=== PATIENT | female | born 1975 | race Caucasian/White ===

== ENCOUNTER 2019-04-18 12:15 | Emergency (ER) | payer SELFPAY ==
--- NOTE | 2019-04-18 12:26 | ER Document Report ---
ED Medical Screen (RME) - General Chief Complaint: Psych Problem Stated Complaint: ANXIOUS/ALTERED Time Seen by Provider: 04/18/19 12:19 Mode of Arrival: Ambulatory Information source: Patient Notes: Patient presents stating that she has had difficulty focusing and paranoid thoughts. Patient states that she has been treated for mental illness in the past but is unable to state what her specific diagnosis was. Patient states she has been off of medications for 4 years. Patient denies any suicidal or homicidal ideation I have greeted and performed a rapid initial assessment of this patient. A comprehensive ED assessment and evaluation of the patient, analysis of test results and completion of the medical decision making process will be conducted by additional ED providers. - Related Data Allergies/Adverse Reactions: No Known Allergies Allergy (Unverified 04/18/19 12:19) Physical Exam - Psychological Associated symptoms: Paranoid, Tangential speech
--- NOTE | 2019-04-18 12:52 | ER Document Report ---
ED Psych Disorder / Suicide <BRET POE - Last Filed: 04/18/19 18:10> - General Mode of Arrival: Ambulatory TRAVEL OUTSIDE OF THE [place] IN LAST 30 DAYS: No <DEBORAH KURTZ - Last Filed: 04/18/19 18:20> - General Chief Complaint: Psych Problem Stated Complaint: ANXIOUS/ALTERED Time Seen by Provider: 04/18/19 12:19 Notes: Patient is a 43-year-old female with a history of schizophrenia who presents emergency department with a chief complaint of paranoid thoughts. Patient reports she has had paranoid thoughts for a few days. Patient reports she does not want to go into specific detail regarding these thoughts. Patient reports she is having difficulty focusing. Patient reports that she was on medication about 4 years ago. Patient reports she was taking Depakote but that this caused seizures. Patient reports she is under a lot of stress as she is moving out of a home where she was living by herself and moving in with her daughter, her and 3 young grandchildren under the age of 5. She states that she has gone from living in a quiet environment to a chaotic environment. Patient also reports about 2 years ago pulling a tick from her vagina. Patient reports she is have any discomfort from this area and is concerned that the tick is still there and sucking her blood. Patient reports she started her last menstrual cycle on Sunday. Patient reports body pain with her menstrual cycles but reports that this is improved. Patient's not sure if the tick is still present or if this is part of her paranoid thoughts. (DEBORAH KURTZ) - Related Data Allergies/Adverse Reactions: No Known Allergies Allergy (Unverified 04/18/19 12:19) Past Medical History - General Information source: Patient - Social History Smoking Status: Current Every Day Smoker Cigarette use (# per day): Yes - 1 ppd Chew tobacco use (# tins/day): No Smoking Education Provided: Yes Frequency of alcohol use: None Drug Abuse: None Lives with: Family Family History: None Patient has suicidal ideation: No Patient has homicidal ideation: No - Past Medical History Cardiac Medical History: Reports: None Pulmonary Medical History: Reports: None EENT Medical History: Reports: None Neurological Medical History: Reports: None Endocrine Medical History: Reports: None Renal/ Medical History: Reports: None Malignancy Medical History: Reports: None GI Medical History: Reports: None Musculoskeletal Medical History: Reports None Skin Medical History: Reports None Psychiatric Medical History: Reports: Hx Schizophrenia Traumatic Medical History: Reports: None Infectious Medical History: Reports: None Surgical Hx: Negative <DEBORAH KURTZ - Last Filed: 04/18/19 18:20> Review of Systems - Review of Systems Constitutional: No symptoms reported EENT: No symptoms reported Cardiovascular: No symptoms reported Respiratory: No symptoms reported Gastrointestinal: No symptoms reported Genitourinary: No symptoms reported Female Genitourinary: See HPI Musculoskeletal: No symptoms reported Skin: No symptoms reported Hematologic/Lymphatic: No symptoms reported Neurological/Psychological: Anxiety, Other - Paranoid thoughts <DEBORAH KURTZ - Last Filed: 04/18/19 18:20> Physical Exam <DEBORAH KURTZ - Last Filed: 04/18/19 18:20> - Vital signs Vitals: Temp Pulse Resp BP Pulse Ox 99.4 F 104 H 18 145/81 H 100 04/18/19 12:20 04/18/19 12:20 04/18/19 12:20 04/18/19 12:20 04/18/19 12:20 - Notes Notes: GENERAL: Flat affect, poor eye contact, sitting upright, well kept. HEAD: Atraumatic, normocephalic. EYES: Pupils equal round and reactive to light, extraocular movements intact, sclera anicteric, conjunctiva are normal. ENT: Nares patent, oropharynx clear without exudates. Moist mucous membranes. NECK: Normal range of motion, supple without lymphadenopathy or JVD. LUNGS: Breath sounds clear to auscultation bilaterally and equal. No wheezes rales or rhonchi. HEART: Regular rate and rhythm without murmurs, rubs or gallops. ABDOMEN: Soft, nontender, normoactive bowel sounds. No guarding, no rebound. No masses appreciated. BACK: No cervical, thoracic, lumbar midline tenderness. No saddle anesthesia, normal distal neurovascular exam. GENITOURINARY: Deferred. EXTREMITIES: Normal range of motion, no pitting or edema. No clubbing or cyanosis. NEUROLOGICAL: Cranial nerves II through XII grossly intact. Normal speech, normal gait. PSYCH: Flat affect, poor eye contact. SKIN: Warm, Dry, normal turgor, no rashes or lesions noted. (DEBORAH KURTZ) Course - Laboratory Result Diagrams: 04/18/19 12:45 04/18/19 12:45 <BRET POE - Last Filed: 04/18/19 18:10> - Laboratory Result Diagrams: 04/18/19 12:45 04/18/19 12:45 <DEBORAH KURTZ - Last Filed: 04/18/19 18:20> - Re-evaluation Re-evalutation: 04/18/19 12:51 We will obtain a pelvic examination as the patient reports a possible tick bite that did occur 2 years ago but she is concerned that the tick is still present and feels an irritation to the vaginal area. Will obtain pelvic specimens as well. Patient in agreement with this plan. Denies SI/HI. 04/18/19 13:35 Patient tolerated the speculum examination well. This was supervised by Aliya HARGROVE. Specimen sent to lab. 04/18/19 13:57 Patient's lab work was unremarkable. Patient does have a slightly low platelet count of 129. Patient's pelvic specimens did not reveal a bacterial vaginosis, yeast, trichomonas. Gonorrhea and Chlamydia cultures are pending. Patient is medically cleared. Bret with [facility] is at the bedside speaking with the patient. 04/18/19 14:12 Urinalysis pending. Zyprexa ordered per mental health recommendations. I did update the patient regarding this new medication we are giving her, patient is in agreement. 04/18/19 15:04 Urinalysis unremarkable. Patient is medically cleared. 04/18/19 18:20 Patient resting comfortably on stretcher. Family is at bedside. Patient was given a two-week prescription for Zyprexa 5 mg twice daily. This was of the recommendation by mental health. Patient reports feeling slightly better and continues to deny SI and HI. Patient has good eye contact and is smiling. Patient stable for discharge. (DEBORAH KURTZ) - Vital Signs Vital signs: Temp Pulse Resp BP Pulse Ox 99.4 F 104 H 18 145/81 H 100 04/18/19 12:20 04/18/19 12:20 04/18/19 12:20 04/18/19 12:20 04/18/19 12:20 - Laboratory Laboratory results interpreted by me: 04/18/19 04/18/19 04/18/19 12:45 12:45 14:05 WBC 10.8 H MCH 33.7 H Plt Count 129 L Absolute Neuts (auto) 8.4 H Glucose 118 H Direct Bilirubin 0.6 H Urine Blood LARGE H Ur Leukocyte Esterase SMALL H Salicylates 1.0 L Acetaminophen < 10 L Patient's lab work was unremarkable. Patient did have a slightly low platelet count of 129. Patient's liver enzymes within normal limits. Patient's pelvic exam specimens did not reveal yeast, bacterial vaginosis or trichomonas. Gonorrhea and Chlamydia cultures are pending. Urine drug screen negative. Laboratory 04/18/19 04/18/19 04/18/19 12:45 12:45 12:45 WBC 10.8 H RBC 4.27 Hgb 14.4 Hct 40.3 MCV 94 MCH 33.7 H MCHC 35.7 RDW 12.7 Plt Count 129 L Lymph % (Auto) 17.1 Craig % (Auto) 4.3 Eos % (Auto) 0.3 Baso % (Auto) 0.3 Absolute Neuts (auto) 8.4 H Absolute Lymphs (auto) 1.8 Absolute Monos (auto) 0.5 Absolute Eos (auto) 0.0 Absolute Basos (auto) 0.0 Seg Neutrophils % 78.0 Sodium 140.2 Potassium 3.8 Chloride 105 Carbon Dioxide 26 Anion Gap 9 BUN 15 Creatinine 0.96 Est GFR ( Amer) > 60 Est GFR (MDRD) Non-Af > 60 Glucose 118 H Calcium 9.7 Total Bilirubin 0.7 Direct Bilirubin 0.6 H Neonat Total Bilirubin Not Reportable Neonat Direct Bilirubin Not Reportable Neonat Indirect Bili Not Reportable AST 19 ALT 17 Alkaline Phosphatase 72 Total Protein 8.2 Albumin 4.3 Serum HCG, Qual NEGATIVE Trichomonas (Wet Prep) Vaginal WBC Vaginal RBC Vaginal Yeast Salicylates 1.0 L Acetaminophen < 10 L Serum Alcohol < 10 04/18/19 13:30 WBC RBC Hgb Hct MCV MCH MCHC RDW Plt Count Lymph % (Auto) Craig % (Auto) Eos % (Auto) Baso % (Auto) Absolute Neuts (auto) Absolute Lymphs (auto) Absolute Monos (auto) Absolute Eos (auto) Absolute Basos (auto) Seg Neutrophils % Sodium Potassium Chloride Carbon Dioxide Anion Gap BUN Creatinine Est GFR ( Amer) Est GFR (MDRD) Non-Af Glucose Calcium Total Bilirubin Direct Bilirubin Neonat Total Bilirubin Neonat Direct Bilirubin Neonat Indirect Bili AST ALT Alkaline Phosphatase Total Protein Albumin Serum HCG, Qual Trichomonas (Wet Prep) NO TRICHOMONAS SEEN Vaginal WBC 1+ WBCS SEEN Vaginal RBC 4+ RBCS SEEN Vaginal Yeast NO YEAST SEEN Salicylates Acetaminophen Serum Alcohol 04/18/19 15:04 (DEBORAH KURTZ) Procedures - Pelvic Exam Pelvic exam Time completed: 13:30 Cultures obtained: Yes Wet prep obtained: Yes Witnessed by: BEENA Pisano <DEBORAH KURTZ - Last Filed: 04/18/19 18:20> - Pelvic Exam Pelvic exam Notes: 04/18/19 13:31 External genitalia was unremarkable without edema, lesions, erythema. I did have the patient point to the area of concern. Patient pointed to the anterior aspect of the labia majora. Did not reveal any lesions, edema or abnormalities or tick. Patient tolerated the insertion of the speculum well. There was a large amount of bright red blood noted within the vaginal vault. Patient is on her menstrual cycle currently. Was able to visualize the cervix. Specimens were obtained. Patient tolerated well without discomfort. (DEBORAH KURTZ) Discharge <BRET POE - Last Filed: 04/18/19 18:10> <DEBORAH KURTZ - Last Filed: 04/18/19 18:20> - Discharge Clinical Impression: Paranoia Bipolar disorder, unspecified Qualifiers: Active/Remission status: currently active Current bipolar episode type: mixed Current episode severity: unspecified Qualified Code(s): F31.60 - Bipolar disorder, current episode mixed, unspecified Condition: Stable Disposition: HOME, SELF-CARE Additional Instructions: You have been evaluated by both medical and behavioral health teams for paranoia and have been deemed appropriate for discharge. While you were in the Emergency Department you received the following services: medical, psychiatric/psychological, pharmaceutical, nursing, project safety manager and securit y, environmental in addition to psychoeducation and resources/referrals. You have been started on Zyprexa 5mg twice daily; please take as directed. You have also been provided a resource list of area providers including mobile crisis contact information; please follow up with your chosen provider in 3-5 days. Bipolar Disorder Bipolar disorder is also called manic-depressive disorder. Depression alternates with brain hyperactivity called kristen. Each phase lasts from several days to a few weeks. We don't know exactly what causes bipolar disorder, but it's treatable. During the "manic phase," you may feel elated and energetic. You may have racing thoughts, rapid speech, increased activity, and grandiose ideas. During this time, you may not realize how poor your judgement is. Inappropriate spending, drug abuse, excessive alcohol use, marriage problems, and irresponsibl e sexual behavior are common during the manic phase. During the "depressive phase," you might feel depressed, guilty, worthless, fatigued, and unable to concentrate. You might have thoughts of suicide. Good treatments are available for bipolar disorder. [place] is a classic drug for bipolar disorder, and is still often useful. If the manic phase is very mild, an antidepressant alone can be prescribed. If the manic phase is very severe, an antipsychotic medicine (such as Haldol) may be needed. The treatment must be matched to your symptoms, so it's important to work closely with your psychiatric care provider. Contact your physician, the hospital emergency center, crisis line, or your counsellor if you are losing control or having self-destructive thoughts. Prescriptions: Olanzapine [Zyprexa 5 mg Tablet] 5 mg PO BID #28 tablet Referrals: [facility] Crisis Team [Provider Group] - Follow up as needed
[2019-04-18 13:04] LABS: ABSOLUTE LYMPHOCYTES (AUTO) 1.8 10^3/uL (0.5-4.7); ABSOLUTE MONOCYTES (AUTO) 0.5 10^3/uL (0.1-1.4); ABSOLUTE NEUT (AUTO) 8.4 10^3/uL (1.7-8.2); BASOPHILS % (AUTO) 0.3 % (0-2); EOSINOPHILS % (AUTO) 0.3 % (0-6); HEMATOCRIT 40.3 % (36.0-47.0); HEMOGLOBIN 14.4 g/dL (12.0-15.5); LYMPHOCYTES % (AUTO) 17.1 % (13-45); MEAN CORPUSCULAR HEMOGLOBIN 33.7 pg (27.0-33.4); MEAN CORPUSCULAR HGB CONC 35.7 g/dL (32.0-36.0); MEAN CORPUSCULAR VOLUME 94 fl (80-97); MONOCYTES % (AUTO) 4.3 % (3-13); PLATELET COUNT 129 10^3/uL (150-450); RED BLOOD COUNT 4.27 10^6/uL (3.72-5.28); RED CELL DISTRIBUTION WIDTH 12.7 % (11.5-14.0); TOTAL CELLS COUNTED % (AUTO) 100 %; WHITE BLOOD COUNT 10.8 10^3/uL (4.0-10.5)
[2019-04-18 13:21] LABS: ALBUMIN 4.3 g/dL (3.5-5.0); ALKALINE PHOSPHATASE 72 U/L (38-126); ANION GAP 9 (5-19); ASPARTATE AMINO TRANSFERASE 19 U/L (14-36); BILIRUBIN,DIRECT 0.6 mg/dL (0.0-0.4); BILIRUBIN,TOTAL 0.7 mg/dL (0.2-1.3); BLOOD UREA NITROGEN 15 mg/dL (7-20); CALCIUM 9.7 mg/dL (8.4-10.2); CARBON DIOXIDE 26 mmol/L (22-30); CHLORIDE 105 mmol/L (98-107); GLUCOSE 118 mg/dL (75-110); POTASSIUM 3.8 mmol/L (3.6-5.0); TOTAL PROTEIN 8.2 g/dL (6.3-8.2)
[2019-04-18 13:24] LABS: ACETAMINOPHEN < 10 ug/mL (10-30); ALCOHOL < 10 mg/dL (NONE DETECTED)
[2019-04-18 13:52] LABS: RBCS (WET MOUNT) 4+ RBCS SEEN; T.VAGINALIS (WET MOUNT) NO TRICHOMONAS SEEN; WBCS (WET MOUNT) 1+ WBCS SEEN; YEAST (WET MOUNT) NO YEAST SEEN
[2019-04-18] MEDS ORDERED: OLANZAPINE 5 MG TAB.RAPDIS PO ONE (14:13)
--- NOTE | 2019-04-18 14:39 | PSYCHOLOGICAL NOTE ---
Psych Note - Psych Note Date seen by psych provider: 04/18/19 Time seen by psych provider: 14:00 Psych Note: Reason For Consult:paranoia Consent Permissions:none provided She reports she has been under stress and has not been sleeping. She reports she has thoughts that if she discloses where she is from "they" will know and go and kill everyone there; " I know that it is not right...but I can't help thinking it." She continues to disclose "my family says they wanted me to go to [place], but I don't want to try running...I don't want to be that person... I came here because I know I need help, but sometimes I get a thought that I have to run away (for safety)." She confirms that has happened to her before and that she feels she has cycles with time that she feels "off...sick." She reports she is trying hard not to feel jealousy for people that have loved ones and is worried for her family's safety. She discloses her family is safe and not in danger but her head makes her have constant thoughts for their safety. She discloses guilt for moving into her daughter's home, stating she does not want to be a burden. She also discloses guilt her daughter had her first child at 15 years old and now has 3 children and she is only 22 years old and on her second marriage. She states she hopes she is happy, but worries for her. Patient reports family history of bipolar. Patient is alert and orientated to person, place, time and circumstance. Mood is anxious with congruent affect as evidenced my psychomotor agitation (consent repositioning body and picking face). Patient denies suicidal and homicidal ideation. Paranoid delusions are noted. Patient is demonstrating overall organized and linear thought process; there are times she comes tangential but quickly comes back to topic. The patient has noted illogical thought processes; however, the patient notes they are illogical but unable to stop. Eye contact is fair. Conversational speech is within normal rate, tone and prosody. Intellectual abilities appear to be within the average range. Attention and concentration are fair to poor. Insight, judgment, impulse control are fair. Medication recommendations per [facility]'s contracted psychiatrist Dr. Chaparro VALDEZ are as follows Zyprexa Zydis 5mg ODT once Impression\\plan:Patient is recommended for mental health observation. Patient reports she has not slept in many days with significant stress recently from moving into her daughter's home. It appears the patient is experiencing kristen with psychotic features. She currently does not meet IVC criteria as she is able to identify her symptoms and clearly communicates her understanding that her thoughts are illogical at times. She is able to understand reality verses her paranoia and is asking voluntarily for assistance. She confirms she would willingly take medication so she can get some sleep and to allow re-evaluation after awaking. She denies any thoughts of wanting to hurt herself or others. Patient will be re-evaluated. Dr. Rodas was consulted to care management of this patient; attending physicians in agreement with recommendations and disposition. Clinician spoke with patient's mothers and daughter. They report the patient has been demonstrating increased paranoia with constant fear a family member will be hurt. They disclose the patient was inpatient 10 years ago in [place] when she last had a similar event. They report she went voluntarily for help but they made her stay and she attempted to escape. She reportedly was put into a straightjacket and they think she is scared of having to stay in a hospital again after that. They report she would walk around as if in a daze and became hyper-adventism and paranoid. Clinician spoke with family and patient. Clinician provided psychoeducation. The family states they have no concerns with the patient returning home. They confirm they will assist the patient ensuring that she follows mental health recommendations which includes medication management and follow-up with outpatient mental health services. Family and patient were provided local resource list of area providers including mobile crisis contact information. Family confirm they will call for assistance if patient's symptoms worsen. Impression\\plan: Patient is cleared from acute psychiatric services. Patient demonstrates being able to differentiate between her thoughts and feelings surrounding her obsessive thought patterns from her paranoia and reality. Patient has no thoughts of wanting to hurt herself or others and has not demonstrated any behaviors that put herself or others and harm because of her fe ars. Patient demonstrates insight and judgment in coming to [facility] for assistance. She confirms she would like medication management and follow-up with outpatient mental health services. Patient confirms family confirms they have no concerns with the patient returning home with them and confirm they will assist the patient with plan of care i.e. no access to medications weapons, follow through with mental health recommendations. Patient and family have been provided local resource list of area providers including mobile crisis contact information. Dr. Rodas was consulted to care management of this patient; attending physicians in agreement with recommendations and disposition.
[2019-04-18 14:42] LABS: APPEARANCE,URINE SLIGHTLY-CLOUDY; BILIRUBIN,URINE NEGATIVE (NEGATIVE); COLOR,URINE YELLOW; GLUCOSE, URINE NEGATIVE (NEGATIVE); KETONES,URINE NEGATIVE (NEGATIVE); LEUKOCYTE ESTERASE,URINE SMALL (NEGATIVE); NITRITE,URINE NEGATIVE (NEGATIVE); PROTEIN,URINE NEGATIVE (NEGATIVE); URINE SPECIFIC GRAVITY 1.012; UROBILINOGEN,URINE NEGATIVE mg/dL (<2.0)
[2019-04-18 14:55] LABS: URINE AMPHETAMINES SCREEN NEGATIVE; URINE BARBITURATES SCREEN NEGATIVE; URINE BENZODIAZEPINES SCREEN NEGATIVE; URINE COCAINE SCREEN NEGATIVE; URINE MARIJUANA (THC) SCREEN NEGATIVE; URINE METHADONE SCREEN NEGATIVE; URINE PHENCYCLIDINE SCREEN NEGATIVE
[2019-04-18 15:20] LABS: CHLAM PCR NOT DETECTED (NOT DETECT)
[2019-04-18 18:28] VITALS: BP 108/68
--- NOTE | 2019-04-18 18:38 | EKG REPORT ---
SEVERITY:- NORMAL ECG - SINUS RHYTHM LVH : Confirmed by: Asif Pereyra 18-Apr-2019 18:37:02
== END 2019-04-18 18:36 | disposition home or self-care (01) ==
LOC: ER 12:15
DX: F22 Delusional disorders (principal); F31.60 Bipolar disorder, current episode mixed, unspecified; R10.2 Pelvic and perineal pain; F41.9 Anxiety disorder, unspecified; D69.6 Thrombocytopenia, unspecified; F17.210 Nicotine dependence, cigarettes, uncomplicated
CPT/HCPCS: 93005; 36415; 87086; 87210; 80307 ×4; 84703; 85025; 80053; 81001; 87491; 87591; 93010; J3490; 99285